=== PATIENT | female | born 1960 | race African-American/Black ===

== ENCOUNTER 2017-11-11 08:56 | Inpatient (IN) | payer MEDICARE, OTHER ==
[~2017-11-11] VITALS: Ht 165.1 cm; Wt 79.4 kg
[2017-11-11] VITALS (8 sets, daily range): BP systolic 145–166; BP diastolic 68–75
[~2017-11-11 08:56] MED LIST: ASPIRIN-LOW81 MG ORAL; ATARAX50 MG ORAL; ATENOLOL50 MG ORAL; ATIVAN1 MG ORAL; ATORVASTATIN CA20 MG ORAL; BACTRIM DS TAB1 EAC1 ORAL; CLONIDINE 0.2M0.2 MG PO; COLACE100 MG ORAL; CYCLOBENZAPRINE10 MG ORAL; EXFORGE 10-3201 EACH ORAL; FISH OIL CAP1000 MG ORAL; FUROSEMIDE40 MG ORAL; GEMFIBROZIL600 MG ORAL; IBUPROFEN600 MG ORAL; JANUVIA25 MG ORAL; LANTUS5 UNITS SUBQ; LYRICA25 MG ORAL; METFORMIN HCL1000 M1 ORAL; NOVOLOG100 UNIT/3 SUBQ; PROZAC10 MG ORAL; VICTOZA 2-0.6 MG/0.1 SUBQ
--- NOTE | 2017-11-11 09:21 | Emergency Room Report ---
History of Present Illness General Chief Complaint: Multiple Trauma/Fall Source: Patient, EMS Present Illness HPI 56-year-old female, history of chronic back pain with the morphine pump, presenting with neck pain. Patient states that she was trying to get out of bed , slipped and fell hit her head. Denies losing consciousness. States that now her head and her neck hurts. Denies being on blood thinners. Patient states that she was in an apartment with a caregiver Allergies: Coded Allergies: No Known Allergies (Unverified , 03/23/16) Patient History Past Medical History: see triage record Past Surgical History: none Pertinent Family History: none Reviewed Nursing Documentation: PMH: Agreed, PSxH: Agreed Nursing Documentation-PMH Past Medical History: No History, Except For Hx Hypertension: Yes Hx COPD: No - BACK SURGERY Hx Diabetes: Yes Hx Gastrointestinal Problems: Yes - constipation Hx Headaches: Yes Review of Systems All Other Systems: negative except mentioned in HPI Physical Exam Vital Signs Date Time Temp Pulse Resp B/P (MAP) Pulse Ox O2 Delivery O2 Flow Rate FiO2 11/11/17 08:10 98.4 88 20 160/83 95 Room Air Sp02 EP Interpretation: reviewed, normal General Appearance: alert, GCS 15, non-toxic, mild distress Head: normocephalic, atraumatic Eyes: bilateral eye normal inspection, bilateral eye PERRL, bilateral eye EOMI ENT: normal ENT inspection, normal pharynx, normal voice, moist mucus membranes Neck: other - mild paraspinal cervical tenderness no midline tendenress limited rom 2/2 pain Respiratory: normal inspection, lungs clear, normal breath sounds, no respiratory distress, no retraction, no wheezing, speaking full sentences, chest symmetrical Cardiovascular #1: normal inspection, regular rate, rhythm, no edema, normal capillary refill Cardiovascular #2: 2+ radial (R), 2+ radial (L) Gastrointestinal: normal inspection, non tender, soft, non-distended, no guarding Musculoskeletal: normal inspection, back normal, normal range of motion, non- tender Neurologic: normal inspection, alert, oriented x3, responsive, motor strength/ tone normal, sensory intact, normal gait, speech normal Psychiatric: normal inspection, judgement/insight normal, memory normal Skin: normal inspection, normal color, no rash, warm/dry, well hydrated, normal turgor Medical Decision Making Diagnostic Impression: Primary Impression: Closed head injury Additional Impressions: Marijuana abuse Opiate abuse, continuous Intractable pain ER Course 56-year-old female with mechanical fall DDX: Rule out intracranial hemorrhage, C-spine fracture no neurological signs or symptoms Plan: CT head and C-spine ER course: Patient has remained stable during ED stay. Awake and alert, on a monitor has been D/W Radiology Dr Roberson- states he sees small punctate lesion cannot r/o hemorrhage although likely calcification. area is not likely to be caused by trauma. Will perform interval CT imaging in 4 hours PAtient has remained awake and alert CT C spine negative will admit for intractable pain Disposition: Pt admitted to med surg D/W hospitalist Dr Cornejo Please note that this Emergency Department Report was dictated using [employer] racker technology software, occasionally this can lead to erroneous entry secondary to interpretation by the dictation equipment EKG Diagnostic Results EP Interpretation: Yes Rate: normal Rhythm: NSR ST Segments: No acute changes ASA given to patient: No Laboratory Tests Test 11/11/17 11:20 White Blood Count 6.7 K/UL (4.8-10.8) Red Blood Count 3.92 M/UL (4.20-5.40) L Hemoglobin 11.1 G/DL (12.0-16.0) L Hematocrit 35.7 % (37.0-47.0) L Mean Corpuscular Volume 91 FL (80-99) Mean Corpuscular Hemoglobin 28.3 PG (27.0-31.0) Mean Corpuscular Hemoglobin Concent 31.1 G/DL (32.0-36.0) L Red Cell Distribution Width 13.3 % (11.6-14.8) Platelet Count 346 K/UL (150-450) Mean Platelet Volume 6.5 FL (6.5-10.1) Neutrophils (%) (Auto) 57.6 % (45.0-75.0) Lymphocytes (%) (Auto) 32.1 % (20.0-45.0) Monocytes (%) (Auto) 5.3 % (1.0-10.0) Eosinophils (%) (Auto) 3.4 % (0.0-3.0) H Basophils (%) (Auto) 1.6 % (0.0-2.0) Urine Color Pale yellow Urine Appearance Clear Urine pH 8 (4.5-8.0) Urine Specific [place] 1.015 (1.005-1.035) Urine Protein Negative (NEGATIVE) Urine Glucose (UA) 4+ (NEGATIVE) H Urine Ketones Negative (NEGATIVE) Urine Occult Blood Negative (NEGATIVE) Urine Nitrite Negative (NEGATIVE) Urine Bilirubin Negative (NEGATIVE) Urine Urobilinogen Normal MG/DL (0.0-1.0) Urine Leukocyte Esterase Negative (NEGATIVE) Sodium Level 142 MMOL/L (136-145) Potassium Level 3.7 MMOL/L (3.5-5.1) Chloride Level 105 MMOL/L (98-107) Carbon Dioxide Level 30 MMOL/L (21-32) Anion Gap 7 mmol/L (5-15) Blood Urea Nitrogen 11 mg/dL (7-18) Creatinine 0.6 MG/DL (0.55-1.30) Estimate Glomerular Filtration Rate > 60 mL/min (>60) Glucose Level 235 MG/DL (74-106) H Calcium Level 8.4 MG/DL (8.5-10.1) L Total Bilirubin 0.2 MG/DL (0.2-1.0) Aspartate Amino Transferase (AST) 29 U/L (15-37) Alanine Aminotransferase (ALT) 25 U/L (12-78) Alkaline Phosphatase 103 U/L (46-116) Troponin I 0.000 ng/mL (0.000-0.056) Total Protein 7.3 G/DL (6.4-8.2) Albumin 3.5 G/DL (3.4-5.0) Globulin 3.8 g/dL Albumin/Globulin Ratio 0.9 (1.0-2.7) L Salicylates Level 6.9 ug/mL (2.8-20) Urine Opiates Screen Positive (NEGATIVE) H Acetaminophen Level < 2 MCG/ML (10-30) L Urine Barbiturates Screen Negative (NEGATIVE) Phencyclidine (PCP) Screen Negative (NEGATIVE) Urine Amphetamines Screen Negative (NEGATIVE) Urine Benzodiazepines Screen Negative (NEGATIVE) Urine Cocaine Screen Negative (NEGATIVE) Urine Marijuana (THC) Screen Positive (NEGATIVE) H Serum Alcohol < 3 mg/dL CT/MRI/US Diagnostic Results CT/MRI/US Diagnostic Results #1: Imaging Test Ordered: CT Head Impression Findings: There is a small focus of increased attenuation in the anterior parasagittal right frontal lobe. This measures approximately 4 mm in diameter. No other finding to suggest acute intracranial hemorrhage or edema. No mass effect or midline shift. Normal alarcon-white differentiation. Intact calvarium. Visualized orbits are unremarkable. There is evidence of empty sella. Intact calvarium. Normal- sized ventricles and extra axial CSF spaces. There is some periventricular deep white matter low-attenuation consistent with chronic ischemic change. There is suggestion of an old lacunar infarct in the anterior left internal capsule. There is slight thickening of the high right posterior parietal scalp. Impression: Tiny focus of high attenuation in the anterior medial right frontal lobe. Suspect this represents a small parenchymal calcification or calcified vessel. However, small focus of hemorrhage is not completely excluded. MRI versus short interval follow-up imaging may be useful to clarify No other evidence of acute intracranial bleed or mass effect. Chronic findings as described Critical value findings phoned to Dr. Martin in the emergency room at the time of interpretation CT/MRI/US Diagnostic Results #2: Imaging Test Ordered: CT C spine Impression Comparison: none Findings: Motion artifact degrades the images of C2 through C4. Subtle pathology could be missed. Bony alignment is normal. No definite acute fractures. No dislocations. No prevertebral soft tissue swelling. Vertebral body heights are preserved. There is anterior surgical fusion of C5, C6, and C7. There appears to be successful ankylosis of the C5-6 disc. The C6-7 disc does not appear to be ankylosed. There is degenerative narrowing of the anterior atlantoaxial joint. There are degenerative proliferative changes of the anterior arch of C1. At C2-3, no significant disc bulge or protrusion or spinal stenosis. The disc space is preserved. There is mild narrowing of the bilateral neural foramina. There is considerable facet arthrosis bilaterally, particularly on the right. At C3-4, the disc space is preserved. No significant disc bulge or protrusion or spinal stenosis. There is mild neural foraminal stenosis bilaterally. There is marked erosion of the bilateral facets, particularly on the left, as well as erosive changes of the spinous process. A large subchondral cyst is seen within the lamina on the right. There is also associated extensive degenerative proliferative change. At C4-5, the disc space is preserved. No significant disc bulge or protrusion, spinal stenosis, or neural foraminal stenosis. There is ankylosis of the right facet and mild arthrosis of the left facet. At C5-6, posterior osteophytes result in narrowing of the spinal canal just to the left of midline and likely impingement on the anterior aspect of the cord. The spinal canal is narrowed to about 8 mm minimum AP dimension. There is mild right and moderate left neural foraminal stenosis at this level. There is bilateral facet arthrosis, more severe on the left. At C6-7, there is likewise narrowing of the spinal canal by a continuation of the above-mentioned osteophytes. There is mild right and moderate to severe left neural foraminal stenosis. At C7-T1, there is mild degenerative disc narrowing. Posterior osteophytes result in borderline compromise of the spinal canal. There is mild narrowing of the left neural foramen. The included extraspinal soft tissues are unremarkable. Impression: Somewhat limited exam due to motion artifact. No definite acute bony trauma Degenerative changes, as detailed on a level by level basis above Erosive changes of the C3-4 facets. This is most likely degenerative in nature, but the possibility of infection cannot be completely ruled out. MRI with contrast should be considered if there is high clinical suspicion Last Vital Signs Date Time Temp Pulse Resp B/P (MAP) Pulse Ox O2 Delivery O2 Flow Rate FiO2 11/11/17 08:10 98.4 88 20 160/83 95 Room Air Disposition: ADMITTED INPATIENT Condition: Serious Referrals: NOT CHOSEN IPA/,REFERRING (PCP) Mishel Martin M.D. Nov 11, 2017 09:21
--- NOTE | 2017-11-11 10:03 | Diagnostic Imaging Report ---
Indications: Pain Technique: Spiral acquisitions obtained through the brain. Angled axial and coronal 5 x 5 mm slices were reconstructed. Total dose length product 1425 mGycm. CTDI vol(s) 70 mGy. Dose reduction achieved using automated exposure control Comparison: None. Findings: There is a small focus of increased attenuation in the anterior parasagittal right frontal lobe. This measures approximately 4 mm in diameter. No other finding to suggest acute intracranial hemorrhage or edema. No mass effect or midline shift. Normal alarcon-white differentiation. Intact calvarium. Visualized orbits are unremarkable. There is evidence of empty sella. Intact calvarium. Normal-sized ventricles and extra axial CSF spaces. There is some periventricular deep white matter low-attenuation consistent with chronic ischemic change. There is suggestion of an old lacunar infarct in the anterior left internal capsule. There is slight thickening of the high right posterior parietal scalp. Impression: Tiny focus of high attenuation in the anterior medial right frontal lobe. Suspect this represents a small parenchymal calcification or calcified vessel. However, small focus of hemorrhage is not completely excluded. MRI versus short interval follow-up imaging may be useful to clarify No other evidence of acute intracranial bleed or mass effect. Chronic findings as described Critical value findings phoned to Dr. Martin in the emergency room at the time of interpretation The CT scanner at [facility] is accredited by the [employer] and the scans are performed using protocols designed to limit radiation exposure to as low as reasonably achievable to attain images of sufficient resolution adequate for diagnostic evaluation.
--- NOTE | 2017-11-11 10:19 | Diagnostic Imaging Report ---
Indication: Reason For Exam: PAIN Technique: Spiral acquisitions obtained through the cervical spine. No IV contrast utilized. Multiplanar reconstructions were generated. Total dose length product 409 mGycm. CTDIvol(s) 21 mGy. Dose reduction achieved using automated exposure control. Comparison: none Findings: Motion artifact degrades the images of C2 through C4. Subtle pathology could be missed. Bony alignment is normal. No definite acute fractures. No dislocations. No prevertebral soft tissue swelling. Vertebral body heights are preserved. There is anterior surgical fusion of C5, C6, and C7. There appears to be successful ankylosis of the C5-6 disc. The C6-7 disc does not appear to be ankylosed. There is degenerative narrowing of the anterior atlantoaxial joint. There are degenerative proliferative changes of the anterior arch of C1. At C2-3, no significant disc bulge or protrusion or spinal stenosis. The disc space is preserved. There is mild narrowing of the bilateral neural foramina. There is considerable facet arthrosis bilaterally, particularly on the right. At C3-4, the disc space is preserved. No significant disc bulge or protrusion or spinal stenosis. There is mild neural foraminal stenosis bilaterally. There is marked erosion of the bilateral facets, particularly on the left, as well as erosive changes of the spinous process. A large subchondral cyst is seen within the lamina on the right. There is also associated extensive degenerative proliferative change. At C4-5, the disc space is preserved. No significant disc bulge or protrusion, spinal stenosis, or neural foraminal stenosis. There is ankylosis of the right facet and mild arthrosis of the left facet. At C5-6, posterior osteophytes result in narrowing of the spinal canal just to the left of midline and likely impingement on the anterior aspect of the cord. The spinal canal is narrowed to about 8 mm minimum AP dimension. There is mild right and moderate left neural foraminal stenosis at this level. There is bilateral facet arthrosis, more severe on the left. At C6-7, there is likewise narrowing of the spinal canal by a continuation of the above-mentioned osteophytes. There is mild right and moderate to severe left neural foraminal stenosis. At C7-T1, there is mild degenerative disc narrowing. Posterior osteophytes result in borderline compromise of the spinal canal. There is mild narrowing of the left neural foramen. The included extraspinal soft tissues are unremarkable. Impression: Somewhat limited exam due to motion artifact. No definite acute bony trauma Degenerative changes, as detailed on a level by level basis above Erosive changes of the C3-4 facets. This is most likely degenerative in nature, but the possibility of infection cannot be completely ruled out. MRI with contrast should be considered if there is high clinical suspicion The CT scanner at [facility] is accredited by the [employer] and the scans are performed using protocols designed to limit radiation exposure to as low as reasonably achievable to attain images of sufficient resolution adequate for diagnostic evaluation.
--- NOTE | 2017-11-11 11:18 | Diagnostic Imaging Report ---
Indication: Chest pain Technique: One view of the chest Comparison: none Findings: Suboptimal inspiration. Lungs and pleural spaces are clear. The heart size is upper limits of normal. The aorta is tortuous. Surgical fusion hardware is seen in the cervical spine Impression: No acute process
[2017-11-11 11:51] LABS: BASOPHILS % (AUTO) 1.6 % (0.0-2.0); EOSINOPHILS % (AUTO) 3.4 % (0.0-3.0); HEMATOCRIT 35.7 % (37.0-47.0); HEMOGLOBIN 11.1 G/DL (12.0-16.0); LYMPHOCYTES % (AUTO) 32.1 % (20.0-45.0); MEAN CORPUSCULAR VOLUME 91 FL (80-99); MONOCYTES % (AUTO) 5.3 % (1.0-10.0); NEUTROPHILS % (AUTO) 57.6 % (45.0-75.0); PLATELET COUNT 346 K/UL (150-450); RED BLOOD COUNT 3.92 M/UL (4.20-5.40); RED CELL DISTRIBUTION WIDTH 13.3 % (11.6-14.8); WHITE BLOOD COUNT 6.7 K/UL (4.8-10.8)
[2017-11-11 11:53] LABS: APPEARANCE,URINE CLEAR; BILIRUBIN, URINE NEGATIVE (NEGATIVE); COLOR,URINE PALE YELLOW; GLUCOSE, URINE (UA) 4+ (NEGATIVE); KETONES,URINE NEGATIVE (NEGATIVE); LEUKOCYTE ESTERASE ,URINE NEGATIVE (NEGATIVE); NITRITE,URINE NEGATIVE (NEGATIVE); PH,URINE 8 (4.5-8.0); PROTEIN,URINE NEGATIVE (NEGATIVE); UROBILINOGEN,URINE NORMAL MG/DL (0.0-1.0)
[2017-11-11 12:01] LABS: ANION GAP 7 mmol/L (5-15); BLOOD UREA NITROGEN 11 mg/dL (7-18); CALCIUM 8.4 MG/DL (8.5-10.1); CARBON DIOXIDE 30 MMOL/L (21-32); CHLORIDE 105 MMOL/L (98-107); CREATININE 0.6 MG/DL (0.55-1.30); POTASSIUM 3.7 MMOL/L (3.5-5.1); SODIUM 142 MMOL/L (136-145)
[2017-11-11 12:05] LABS: ALANINE AMINOTRANSFERASE 25 U/L (12-78); ALBUMIN 3.5 G/DL (3.4-5.0); ALBUMIN/GLOBULIN RATIO 0.9 (1.0-2.7); ALKALINE PHOSPHATASE 103 U/L (46-116); ASPARTATE AMINO TRANSFERASE 29 U/L (15-37); BILIRUBIN,TOTAL 0.2 MG/DL (0.2-1.0)
[2017-11-11] MEDS ORDERED: Morphine Sulfate 4mg/ml Inj IVP ONE ×2 (14:00→14:15)
[2017-11-12 00:06] VITALS: BP 169/79
[2017-11-12] MEDS ORDERED: Norco 5mg/325mg tab ORAL PRN (02:00)
[2017-11-12 04:11] VITALS: BP 157/77
[2017-11-12 08:00] VITALS: BP 187/86
[2017-11-12 08:51] LABS: EOSINOPHILS % (AUTO) 3.5 % (0.0-3.0); HEMATOCRIT 35.9 % (37.0-47.0); HEMOGLOBIN 11.2 G/DL (12.0-16.0); LYMPHOCYTES % (AUTO) 39.7 % (20.0-45.0); MEAN CORPUSCULAR VOLUME 91 FL (80-99); MONOCYTES % (AUTO) 5.2 % (1.0-10.0); NEUTROPHILS % (AUTO) 49.7 % (45.0-75.0); PLATELET COUNT 342 K/UL (150-450); RED BLOOD COUNT 3.94 M/UL (4.20-5.40); RED CELL DISTRIBUTION WIDTH 13.2 % (11.6-14.8)
--- NOTE | 2017-11-12 09:07 | Consultation ---
History of Present Illness General Date patient seen: Nov 12, 2017 Chief Complaint: Present Illness Allergies: Coded Allergies: No Known Allergies (Unverified , 03/23/16) Medication History Scheduled Amlodipine/Valsartan (Exforge 10-320 Mg Tablet), 1 TAB ORAL DAILY, (Reported) Aspirin (Aspirin EC), 81 MG ORAL DAILY, (Reported) Atenolol* (Tenormin*), 50 MG ORAL BID, (Reported) Atorvastatin Calcium* (Atorvastatin Calcium*), 20 MG ORAL BEDTIME, (Reported) Clonidine HCl (Clonidine HCl), 0.2 MG PO DAILY, (Reported) Docusate Sodium* (Colace*), 100 MG ORAL TWICE A DAY, (Reported) Fish Oil (Fish Oil 1,000 mg Capsule), 1,000 MG ORAL DAILY Fluoxetine Hcl* (Prozac*), 10 MG ORAL DAILY, (Reported) Furosemide* (Lasix*), 40 MG ORAL DAILY, (Reported) Gemfibrozil (Gemfibrozil*), 600 MG ORAL TWICE A DAY Hydroxyzine HCl (Hydroxyzine Pamoate), 100 MG ORAL BEDTIME, (Reported) Insulin Aspart* (Novolog*), 15 SUBQ TID, (Reported) Insulin Glargine (Lantus), 40 SUBQ BEDTIME, (Reported) Liraglutide (Victoza 2-Jef), 1.8 UNITS SUBQ DAILY, (Reported) Lorazepam* (Ativan*), 1 MG ORAL BID, (Reported) Metformin Hcl* (Metformin Hcl*), 1,000 MG ORAL BID, (Reported) Pregabalin (Lyrica), 25 MG ORAL BID, (Reported) Sitagliptin* (Januvia*), 25 MG ORAL DAILY, (Reported) Trimethoprim/Sulfamethoxazole 160/800* (Bactrim Ds Tablet*), 1 TAB ORAL TWICE A DAY Scheduled PRN Cyclobenzaprine Hcl* (Flexeril*), 10 MG ORAL TID PRN for Muscle Spasm Ibuprofen* (Motrin*), 600 MG ORAL Q8H PRN for For Pain Patient History Healthcare decision maker Resuscitation status Advanced Directive on File Physical Exam Last 24 Hour Vital Signs Date Time Temp Pulse Resp B/P (MAP) Pulse Ox O2 Delivery O2 Flow Rate FiO2 11/12/17 08:00 98.2 59 18 187/86 100 Nasal Cannula 11/12/17 04:11 97.7 56 20 157/77 99 Nasal Cannula 11/12/17 04:00 56 11/12/17 00:06 97.7 62 20 169/79 100 Room Air 11/12/17 00:00 60 11/11/17 21:50 98.4 54 15 163/69 100 Room Air 11/11/17 20:45 54 15 163/69 100 Room Air 11/11/17 20:00 98.4 58 16 163/75 98 Room Air 11/11/17 19:30 52 12 162/71 100 Room Air 11/11/17 18:00 58 16 163/75 98 Room Air 11/11/17 16:00 54 16 166/75 95 Room Air 11/11/17 14:00 64 16 145/68 95 Room Air 11/11/17 12:00 61 12 149/72 95 Room Air 11/11/17 10:00 65 14 150/74 95 Room Air Intake and Output 11/11/17 11/12/17 19:00 07:00 Intake Total 240 ml Balance 240 ml Intake Oral 240 ml # Voids 2 # Bowel Movements 1 Laboratory Tests Test 11/11/17 11:20 11/12/17 07:40 White Blood Count 6.7 K/UL (4.8-10.8) 6.0 K/UL (4.8-10.8) Red Blood Count 3.92 M/UL (4.20-5.40) L 3.94 M/UL (4.20-5.40) L Hemoglobin 11.1 G/DL (12.0-16.0) L 11.2 G/DL (12.0-16.0) L Hematocrit 35.7 % (37.0-47.0) L 35.9 % (37.0-47.0) L Mean Corpuscular Volume 91 FL (80-99) 91 FL (80-99) Mean Corpuscular Hemoglobin 28.3 PG (27.0-31.0) 28.5 PG (27.0-31.0) Mean Corpuscular Hemoglobin Concent 31.1 G/DL (32.0-36.0) L 31.3 G/DL (32.0-36.0) L Red Cell Distribution Width 13.3 % (11.6-14.8) 13.2 % (11.6-14.8) Platelet Count 346 K/UL (150-450) 342 K/UL (150-450) Mean Platelet Volume 6.5 FL (6.5-10.1) 6.2 FL (6.5-10.1) L Neutrophils (%) (Auto) 57.6 % (45.0-75.0) 49.7 % (45.0-75.0) Lymphocytes (%) (Auto) 32.1 % (20.0-45.0) 39.7 % (20.0-45.0) Monocytes (%) (Auto) 5.3 % (1.0-10.0) 5.2 % (1.0-10.0) Eosinophils (%) (Auto) 3.4 % (0.0-3.0) H 3.5 % (0.0-3.0) H Basophils (%) (Auto) 1.6 % (0.0-2.0) 2.0 % (0.0-2.0) Urine Color Pale yellow Urine Appearance Clear Urine pH 8 (4.5-8.0) Urine Specific [place] 1.015 (1.005-1.035) Urine Protein Negative (NEGATIVE) Urine Glucose (UA) 4+ (NEGATIVE) H Urine Ketones Negative (NEGATIVE) Urine Occult Blood Negative (NEGATIVE) Urine Nitrite Negative (NEGATIVE) Urine Bilirubin Negative (NEGATIVE) Urine Urobilinogen Normal MG/DL (0.0-1.0) Urine Leukocyte Esterase Negative (NEGATIVE) Sodium Level 142 MMOL/L (136-145) Pending Potassium Level 3.7 MMOL/L (3.5-5.1) Pending Chloride Level 105 MMOL/L (98-107) Pending Carbon Dioxide Level 30 MMOL/L (21-32) Pending Anion Gap 7 mmol/L (5-15) Blood Urea Nitrogen 11 mg/dL (7-18) Pending Creatinine 0.6 MG/DL (0.55-1.30) Pending Estimat Glomerular Filtration Rate > 60 mL/min (>60) Pending Glucose Level 235 MG/DL (74-106) H Pending Calcium Level 8.4 MG/DL (8.5-10.1) L Pending Total Bilirubin 0.2 MG/DL (0.2-1.0) Pending Aspartate Amino Transf (AST/SGOT) 29 U/L (15-37) Pending Alanine Aminotransferase (ALT/SGPT) 25 U/L (12-78) Pending Alkaline Phosphatase 103 U/L (46-116) Pending Troponin I 0.000 ng/mL (0.000-0.056) Total Protein 7.3 G/DL (6.4-8.2) Pending Albumin 3.5 G/DL (3.4-5.0) Pending Globulin 3.8 g/dL Pending Albumin/Globulin Ratio 0.9 (1.0-2.7) L Salicylates Level 6.9 ug/mL (2.8-20) Urine Opiates Screen Positive (NEGATIVE) H Acetaminophen Level < 2 MCG/ML (10-30) L Urine Barbiturates Screen Negative (NEGATIVE) Phencyclidine (PCP) Screen Negative (NEGATIVE) Urine Amphetamines Screen Negative (NEGATIVE) Urine Benzodiazepines Screen Negative (NEGATIVE) Urine Cocaine Screen Negative (NEGATIVE) Urine Marijuana (THC) Screen Positive (NEGATIVE) H Serum Alcohol < 3 mg/dL Height (Feet): 5 Height (Inches): 5.00 Weight (Pounds): 175 Medications Current Medications Medications (Trade) Dose Ordered Sig/Jesse Route PRN Reason Start Time Stop Time Status Last Admin Dose Admin Acetaminophen/ Hydrocodone Bitart (Gilbert 10/325) 1 ea Q4H PRN ORAL severe pain 11/12/17 09:00 11/19/17 23:59 Baclofen (Lioresal) 10 mg THREE TIMES A DAY PRN ORAL muscle spasm 11/12/17 09:00 12/12/17 08:59 Heparin Sodium (Porcine) (Heparin 5000 units/ml) 5,000 units Q12HR SUBQ 11/12/17 09:00 12/12/17 08:59 Hydralazine HCl (Apresoline) 25 mg Q6HR ORAL 11/12/17 09:00 12/12/17 08:59 UNV Lidocaine (Lidoderm 5% PATCH) 1 patch DAILY TDERMAL 11/12/17 09:00 12/12/17 08:59 Pregabalin (Lyrica) 50 mg THREE TIMES A DAY ORAL 11/12/17 09:00 12/12/17 08:59 Sodium Chloride 1,000 ml @ 100 mls/hr Q10H IV 11/11/17 23:00 12/11/17 22:59 11/12/17 02:21 Assessment/Plan Assessment/Plan (1) FBSS (2) Lumbar and Cervical DDD (3) Lumbar and Cervical spondylosis (4) Lumbar and Cervical radiculopathy (5) Cervical sprain seen dictated ROYAL BETANCOURT Nov 12, 2017 09:07
[2017-11-12 09:09] LABS: ALANINE AMINOTRANSFERASE 28 U/L (12-78); ALBUMIN 3.3 G/DL (3.4-5.0); ALBUMIN/GLOBULIN RATIO 0.8 (1.0-2.7); ALKALINE PHOSPHATASE 95 U/L (46-116); ANION GAP 8 mmol/L (5-15); ASPARTATE AMINO TRANSFERASE 22 U/L (15-37); BILIRUBIN,TOTAL 0.5 MG/DL (0.2-1.0); BLOOD UREA NITROGEN 9 mg/dL (7-18); CALCIUM 8.1 MG/DL (8.5-10.1); CARBON DIOXIDE 28 MMOL/L (21-32); CHLORIDE 104 MMOL/L (98-107); CREATININE 0.5 MG/DL (0.55-1.30); POTASSIUM 3.8 MMOL/L (3.5-5.1); SODIUM 140 MMOL/L (136-145)
[2017-11-12] MEDS: HydrALAZINE 25mg tab ORAL SCH ×3 (09:23→17:26)
[2017-11-12] MEDS: Lyrica 50mg cap ORAL SCH ×3 (09:23→17:26)
[2017-11-12] MEDS: Heparin 5000 units/ml inj SUBQ SCH ×2 (09:25→21:25)
[2017-11-12 12:06] VITALS: BP 143/70
[2017-11-12] MEDS: HYDROcodone/Acetamin 10/325 tab ORAL PRN ×3 (13:20→21:28)
--- NOTE | 2017-11-12 15:04 | History and Physical ---
History of Present Illness General Date patient seen: Nov 12, 2017 Reason for Hospitalization: Multiple Trauma/Fall Present Illness HPI 56-year-old female, history of chronic back pain with the morphine pump, presenting with neck pain. she slipped and fell hit her head on day of admission Denies losing consciousness. States that now her head and her neck hurts. She lives with a healthcare consultant at her own place. Allergies: Coded Allergies: No Known Allergies (Unverified , 03/23/16) Medication History Scheduled Amlodipine/Valsartan ([place] 10-320 Mg Tablet), 1 TAB ORAL DAILY, (Reported) Aspirin (Aspirin EC), 81 MG ORAL DAILY, (Reported) Atenolol* (Tenormin*), 50 MG ORAL BID, (Reported) Atorvastatin Calcium* (Atorvastatin Calcium*), 20 MG ORAL BEDTIME, (Reported) Clonidine HCl (Clonidine HCl), 0.2 MG PO DAILY, (Reported) Docusate Sodium* (Colace*), 100 MG ORAL TWICE A DAY, (Reported) Fish Oil (Fish Oil 1,000 mg Capsule), 1,000 MG ORAL DAILY Fluoxetine Hcl* (Prozac*), 10 MG ORAL DAILY, (Reported) Furosemide* (Lasix*), 40 MG ORAL DAILY, (Reported) Gemfibrozil (Gemfibrozil*), 600 MG ORAL TWICE A DAY Hydroxyzine HCl (Hydroxyzine Pamoate), 100 MG ORAL BEDTIME, (Reported) Insulin Aspart* (Novolog*), 15 SUBQ TID, (Reported) Insulin Glargine (Lantus), 40 SUBQ BEDTIME, (Reported) Liraglutide (Victoza 2-Jef), 1.8 UNITS SUBQ DAILY, (Reported) Lorazepam* (Ativan*), 1 MG ORAL BID, (Reported) Metformin Hcl* (Metformin Hcl*), 1,000 MG ORAL BID, (Reported) Pregabalin (Lyrica), 25 MG ORAL BID, (Reported) Sitagliptin* (Januvia*), 25 MG ORAL DAILY, (Reported) Trimethoprim/Sulfamethoxazole 160/800* (Bactrim Ds Tablet*), 1 TAB ORAL TWICE A DAY Scheduled PRN Cyclobenzaprine Hcl* (Flexeril*), 10 MG ORAL TID PRN for Muscle Spasm Ibuprofen* (Motrin*), 600 MG ORAL Q8H PRN for For Pain Patient History Healthcare decision maker Resuscitation status Advanced Directive on File Past Medical/Surgical History Past Medical/Surgical History: (1) Diabetes mellitus (2) HTN (hypertension) Review of Systems Constitutional: Reports: no symptoms Eye: Reports: no symptoms ENT: Reports: no symptoms Respiratory: Reports: no symptoms Musculoskeletal: Reports: no symptoms Physical Exam General Appearance: WD/WN Lines, tubes and drains: peripheral HEENT: normocephalic, atraumatic, anicteric Neck: non-tender, supple Respiratory/Chest: chest wall non-tender, normal breath sounds Breasts: no masses Cardiovascular/Chest: normal peripheral pulses, normal rate Abdomen: normal bowel sounds, non tender Genitourinary/Rectal: normal genital exam Extremities: normal range of motion Last 24 Hour Vital Signs Date Time Temp Pulse Resp B/P (MAP) Pulse Ox O2 Delivery O2 Flow Rate FiO2 11/12/17 14:19 99.1 11/12/17 12:06 99.1 59 18 143/70 100 Nasal Cannula 11/12/17 12:00 59 11/12/17 09:23 187/86 11/12/17 08:00 78 11/12/17 08:00 98.2 59 18 187/86 100 Nasal Cannula 11/12/17 04:11 97.7 56 20 157/77 99 Nasal Cannula 11/12/17 04:00 56 11/12/17 00:06 97.7 62 20 169/79 100 Room Air 11/12/17 00:00 60 11/11/17 21:50 98.4 54 15 163/69 100 Room Air 11/11/17 20:45 54 15 163/69 100 Room Air 11/11/17 20:00 98.4 58 16 163/75 98 Room Air 11/11/17 19:30 52 12 162/71 100 Room Air 11/11/17 18:00 58 16 163/75 98 Room Air 11/11/17 16:00 54 16 166/75 95 Room Air Intake and Output 11/11/17 11/12/17 19:00 07:00 Intake Total 240 ml Balance 240 ml Intake Oral 240 ml # Voids 2 # Bowel Movements 1 Laboratory Tests Test 11/12/17 07:40 White Blood Count 6.0 K/UL (4.8-10.8) Red Blood Count 3.94 M/UL (4.20-5.40) L Hemoglobin 11.2 G/DL (12.0-16.0) L Hematocrit 35.9 % (37.0-47.0) L Mean Corpuscular Volume 91 FL (80-99) Mean Corpuscular Hemoglobin 28.5 PG (27.0-31.0) Mean Corpuscular Hemoglobin Concent 31.3 G/DL (32.0-36.0) L Red Cell Distribution Width 13.2 % (11.6-14.8) Platelet Count 342 K/UL (150-450) Mean Platelet Volume 6.2 FL (6.5-10.1) L Neutrophils (%) (Auto) 49.7 % (45.0-75.0) Lymphocytes (%) (Auto) 39.7 % (20.0-45.0) Monocytes (%) (Auto) 5.2 % (1.0-10.0) Eosinophils (%) (Auto) 3.5 % (0.0-3.0) H Basophils (%) (Auto) 2.0 % (0.0-2.0) Sodium Level 140 MMOL/L (136-145) Potassium Level 3.8 MMOL/L (3.5-5.1) Chloride Level 104 MMOL/L (98-107) Carbon Dioxide Level 28 MMOL/L (21-32) Anion Gap 8 mmol/L (5-15) Blood Urea Nitrogen 9 mg/dL (7-18) Creatinine 0.5 MG/DL (0.55-1.30) L Estimat Glomerular Filtration Rate > 60 mL/min (>60) Glucose Level 152 MG/DL (74-106) H Calcium Level 8.1 MG/DL (8.5-10.1) L Total Bilirubin 0.5 MG/DL (0.2-1.0) Aspartate Amino Transf (AST/SGOT) 22 U/L (15-37) Alanine Aminotransferase (ALT/SGPT) 28 U/L (12-78) Alkaline Phosphatase 95 U/L (46-116) Total Protein 7.2 G/DL (6.4-8.2) Albumin 3.3 G/DL (3.4-5.0) L Globulin 3.9 g/dL Albumin/Globulin Ratio 0.8 (1.0-2.7) L Height (Feet): 5 Height (Inches): 5.00 Weight (Pounds): 175 Medications Current Medications Medications (Trade) Dose Ordered Sig/Jesse Route PRN Reason Start Time Stop Time Status Last Admin Dose Admin Acetaminophen/ Hydrocodone Bitart ([place] 10/325) 1 ea Q4H PRN ORAL severe pain 11/12/17 09:00 11/19/17 23:59 11/12/17 13:20 Baclofen (Lioresal) 10 mg THREE TIMES A DAY PRN ORAL muscle spasm 11/12/17 09:00 12/12/17 08:59 Heparin Sodium (Porcine) (Heparin 5000 units/ml) 5,000 units Q12HR SUBQ 11/12/17 09:00 12/12/17 08:59 11/12/17 09:25 Hydralazine HCl (Apresoline) 25 mg Q6HR ORAL 11/12/17 09:00 12/12/17 08:59 11/12/17 09:23 Lidocaine (Lidoderm 5% PATCH) 1 patch DAILY TDERMAL 11/12/17 09:00 12/12/17 08:59 11/12/17 09:22 Pregabalin (Lyrica) 50 mg THREE TIMES A DAY ORAL 11/12/17 09:00 12/12/17 08:59 11/12/17 13:19 Sodium Chloride 1,000 ml @ 100 mls/hr Q10H IV 11/11/17 23:00 12/11/17 22:59 11/12/17 11:58 Assessment/Plan Problem List: (1) Closed head injury ICD Codes: S09.90XA - Unspecified injury of head, initial encounter SNOMED: 915076233457, 221126455 (2) Multiple injuries due to trauma ICD Codes: T07 - Unspecified multiple injuries SNOMED: 662154030 (3) Neck pain ICD Codes: M54.2 - Cervicalgia SNOMED: 22033947, 050455039 (4) Diabetes mellitus ICD Codes: E11.9 - Type 2 diabetes mellitus without complications SNOMED: 95207311 (5) Failed back surgical syndrome ICD Codes: M96.1 - Postlaminectomy syndrome, not elsewhere classified SNOMED: 898226473 Assessment/Plan pain management neuro evaluation pt/ot sliding scale diabetic diet ZARRABI,MIRALI Nov 12, 2017 15:04
--- NOTE | 2017-11-12 15:16 | Diagnostic Imaging Report ---
Indication: Trauma. Follow-up exam. Technique: Continuous helical CT scanning of the head was performed utilizing automated exposure control without intravenous contrast material. Axial and coronal reconstructions were obtained. Comparison: 11/11/2017, 9:31 CT dose: Total DLP 1386.64 mGycm; CTDI vol 70.38 mGy Findings: Punctate density in the medial right frontal lobe adjacent to the falx is similar in appearance compared to the prior exam. There is no acute intracranial hemorrhage, mass effect or cortical edema. The ventricles, cisterns and sulci are normal for age. Periventricular hypoattenuation is seen, a nonspecific finding most commonly reflective of sequela of chronic microvascular ischemia. 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 The posterior fossa and fourth ventricle are unremarkable. There is probable empty sella. Visualized mastoid air cells and paranasal sinuses are unremarkable. No focal lesions of the bony calvarium seen. There is unchanged thickening of the high right parietal scalp. Impression: Previous described punctate density in the right medial frontal lobe stable in size and appearance compared to the prior exam. This may represent an area of calcification. No evidence of acute intracranial hemorrhage, mass effect or cortical edema. Unchanged chronic findings as detailed above. The CT scanner at [facility] is accredited by the [employer] and the scans are performed using protocols designed to limit radiation exposure to as low as reasonably achievable to attain images of sufficient resolution adequate for diagnostic evaluation.
[2017-11-12 16:00] VITALS: BP 172/86
--- NOTE | 2017-11-12 16:00 | Consultation ---
DATE OF CONSULTATION: 11/12/2017 PAIN MANAGEMENT CONSULTATION CONSULTING PHYSICIAN: Jody Duncan M.D. ATTENDING/REFERRING PHYSICIAN: Ruddy Cornejo M.D. PHYSICIAN CUSTOMER SPECIALIST: Hal Perkins CHIEF COMPLAINT: Neck and low back pain. HISTORY OF PRESENT ILLNESS: The patient is a 56-year-old female, who is being seen for comprehensive pain management consultation here in [facility]. The patient is a known patient from Dr. Duncan's office due to low back pain and neck pain for many years. She describes the pain as a constant, chronic pain, rating it a 10/10. At this time, she has had a sharp shooting pain into her right upper extremity and left lower extremity, increased with movement, reporting that she had a fall, was admitted into the emergency room where a CT scan of the cervical spine was done showing degenerative changes and surgical fusions of the cervical spine. The patient has an intrathecal morphine pain pump, which is refilled per Dr. Duncan. Last filled on 10/30/2017. At this time, the patient is on [place] 5/325 mg one tablet every 8 hours with no pain relief. We were consulted so that the patient would have adequate pain control while here in the hospital. REVIEW OF SYSTEMS: Denies rash, fever, chills, sweating, dizziness, drowsiness, or change in her weight. No shortness of breath, chest pain, palpitations, or cough. No nausea, vomiting, diarrhea, or blood in the stool or urine. No bowel or bladder incontinence. No dysuria. She is complaining of neck pain and low back pain. PHYSICAL EXAMINATION: GENERAL: Alert, awake, and oriented. VITAL SIGNS: Blood pressure 187/86, heart rate is 59, oxygen saturation 100%, respiratory rate 18, and temperature is 98.2 degrees Fahrenheit. LUNGS: Decreased breath sounds bilaterally. HEART: Regular. ABDOMEN: Obese. EXTREMITIES: No cyanosis, no clubbing, and no edema. NEUROLOGIC: Upper extremity motor is 3/5 in all muscles bilaterally. Lower extremity, 2/5 on the right lower extremity. ASSESSMENT AND PLAN: This is a 56-year-old female, who has failed back surgery syndrome. Lumbar and cervical degenerative disk disease, lumbar and cervical spondylosis, lumbar and cervical radiculopathy, and cervical sprain. The patient will be continued on [place] increased to 10 mg tablet every 4 hours as needed for severe pain. We will start the patient on baclofen 10 mg tablet every 8 hours as needed for muscle spasm, Lyrica 50 mg tablet 3 times a day, Lidoderm patch to be applied to the neck and shoulder area on the right side 12 hours on and 12 hours off. Parameters will be set to hold opiates for oversedation or systolic pressure below 90 or diastolic blood pressure below 60. The patient was discussed with Dr. Duncan and Dr. Duncan concurred. We will follow the patient. Thank you very much for the courtesy of this consultation. Jody Duncan M.D. MEDINA Perkins DR: NIKHIL JOB#: [id number] CC:
--- NOTE | 2017-11-12 17:09 | Cardiology Report ---
APPROVED REPORT EKG Measurement Heart [id number] Normal sinus rhythm Nonspecific T wave abnormality Abnormal ECG
--- NOTE | 2017-11-12 19:58 | Consultation ---
Consult Note Consult Note JOB ID [id number] Ruddy Cornejo Nov 12, 2017 19:58
[2017-11-12 20:00] VITALS: BP 159/76
[2017-11-13 00:09] VITALS: BP 177/85
[2017-11-13] MEDS: HydrALAZINE 25mg tab ORAL SCH ×4 (01:20→19:04)
[2017-11-13] MEDS: HYDROcodone/Acetamin 10/325 tab ORAL PRN ×5 (01:22→20:33)
--- NOTE | 2017-11-13 03:00 | Consultation ---
DATE OF CONSULTATION: 11/12/2017 NEUROLOGICAL CONSULTATION CONSULTING PHYSICIAN: Placido Kwok M.D. ATTENDING/REQUESTING PHYSICIAN: Ruddy Cornejo M.D. HISTORY OF PRESENT ILLNESS: This is a 56-year-old female seen in neurological consultation to evaluate the acute onset of neck pain and weakness. According to the patient, she was doing fairly well as of yesterday, but then she was trying to use a walker, she somehow slipped, fell, hitting her back and neck against the ground without loss of consciousness, but developing acute right-sided neck pain. She was brought to emergency room with vital signs stable. Blood pressure 160/86, temperature 98.4 degrees. She has Catrina Coma Scale of 15. She was complaining of headache and neck pain. Initial laboratory studies included mild anemia, hemoglobin 11.1 and hematocrit 35.7. Chemistry panel with elevated blood sugar of 235 and calcium 8.4, otherwise normal study. Toxicology panel positive for opiates and marijuana. Urinalysis with 4+ glucose. Imaging studies included a chest x-ray which revealed no acute process. CT of the brain without contrast revealed tiny focus of high attenuation in anteromedial right frontal lobe, which could represent small calcification or calcified vessel, although not excluded a small focus of hemorrhage. There is evidence of empty sella, deep white matter disease, and old lacunar infarct in anterior left internal capsule. CT scan of the cervical spine revealed degenerative changes multilevel, erosive changes in C3-C4 facet, most likely degenerative, but unable to rule out infection. MRI was recommended. There was anterior cervical fusion of C5, C6, and C7, with ankylosis of C5-C6. CT scan of the brain was followed up, there were no further changes noted and felt that previous punctate density with x-ray evidence of calcification, without evidence of hemorrhage. Since admission until present, there were no any acute changes. PAST MEDICAL HISTORY: The patient has chronic pain disorder. She has morphine pump in place. She has history of cervical laminectomy, chronic low back pain, diabetes, obesity, hypertension, status post lumbar spine surgeries due to underlying severe spinal stenosis. MEDICATIONS: Treatment prior to admission included aspirin, amlodipine, atenolol, atorvastatin, clonidine, Flexeril, Prozac, furosemide, gemfibrozil, hydroxyzine, ibuprofen, insulin, Victoza, Ativan 1 mg b.i.d., metformin, Lyrica 25 mg b.i.d., Januvia, and Bactrim. ALLERGIES: None reported. SOCIAL HISTORY: She lives alone, but has a [id number] caregiver. Denies alcohol or drug abuse except current smoking marijuana. REVIEW OF SYMPTOMS: Severe pain in right occipital region, right neck region, old pain and discomfort in the right upper and right lower extremity which were "problems" from the lumbar spine surgery. Depressed mood. No visual or hearing abnormalities. No chest pain or palpitations. Denies respiratory problems. Denies abdominal pain or discomfort. No urine or bowel incontinence. PHYSICAL EXAMINATION: GENERAL: Well-developed, moderately obese female, sitting at the bedside. VITAL SIGNS: Stable. Blood pressure 128/80 and respirations 14. HEENT: Head normocephalic. There is no evidence of trauma. There is palpable tenderness in the right occipital area. No otorrhea. No rhinorrhea. MUSCULOSKELETAL: There is very acute tenderness on slight touch to right side of the neck, right shoulder. There is tenderness on palpation in the mid lumbar area. Straight leg raising test negative. There is tenderness on palpation of right arm. MENTAL STATUS: She is alert and oriented x3 with no evidence of aphasia or apraxia. Cognitive function normal. Emotionally labile, anxious, and tense. CRANIAL NERVE II: Pupils both responding to light and accommodation. Extraocular movements intact. No nystagmus. CRANIAL NERVE V: Normal corneal responses. CRANIAL NERVE VII: No facial asymmetry. CRANIAL NERVE VIII: Normal hearing. CRANIAL NERVES IX THROUGH XII: Within normal limits. MOTOR EXAMINATION: Revealed limited range of motion of right shoulder with weakness 4/5 in right upper and right lower extremities. Normal muscle tone. Deep tendon reflexes depressed bilaterally. Plantar responses flexor. SENSORY EXAMINATION: Decreased response to pin stimulation in right arm and right leg. No muscle atrophy is noted. GAIT: The patient was able to walk limping heavily to the right side, required assistance. IMPRESSION: 1. Status post mechanical fall with blunt head trauma without loss of consciousness. 2. Posttraumatic cervical musculoligamentous sprain, rule out cervical radiculopathy. 3. Status post lumbar and cervical spine surgeries, with chronic cervical and lumbar radiculopathy. 4. Chronic pain syndrome, opiate dependent. 5. Morphine pump implant. 6. Hypertension. 7. Insulin-dependent diabetes type 2. RECOMMENDATION: The patient unable to have MRI of the spine due to presence of morphine pump. CT of the cervical spine revealed no fracture, no dislocation. It seems pain now related mainly to blunt head trauma and cervical musculoligamentous sprain. We will continue with current treatment, reinstate Flexeril 10 mg b.i.d., increase Lyrica up 50 mg b.i.d., have neck collar, lidocaine applications to the injured area. Pain management will be involved. Thank you for allowing me to see this interesting patient in neurological consultation. Placido Kwok M.D. DR: Gerri JOB#: [id number] CC:
--- NOTE | 2017-11-13 04:45 | Consultation ---
DATE OF CONSULTATION: 11/12/2017 NOTE: POOR AUDIO HEMATOLOGY/ONCOLOGY CONSULTATION REQUESTING PHYSICIAN: Manjeet Delgadillo M.D. REASON FOR CONSULTATION: Evaluation of anemia. IDENTIFICATION DATA: Dear Dr. Delgadillo, The patient is a pleasant 56-year-old female, who I received a call last night that the patient has a past medical history which is significant for back pain, she slipped and fell. Apparently, had a CAT scan performed, which showed a small lesion, cannot rule out hemorrhage but likely calcification. Repeat CAT scan revealed the same finding. Hematology Service consulted for anemia and we will continue to follow if anemia worsens. PAST MEDICAL HISTORY: As noted above. MEDICATIONS: Amlodipine, aspirin, Tylenol, Lipitor, clonidine, , lorazepam, . ALLERGIES: No known drug allergies. REVIEW OF SYSTEMS: CONSTITUTIONAL: No fever, chills, or night sweats. SKIN: No rashes, bumps, or itching. HEENT: No headache, hearing, or vision changes. BREASTS: No lumps, pain, or discharge. PULMONARY: No cough, sputum, or shortness of breath. GASTROINTESTINAL: No nausea, vomiting, or diarrhea. GENITOURINARY: No dysuria, frequency, or urgency. MUSCULOSKELETAL: No joint swelling, muscle pain, or trauma. PHYSICAL EXAMINATION: VITAL SIGNS: Reviewed. GENERAL: No distress. PULMONARY: Decreased breath sounds. CARDIOVASCULAR: Regular rate. No S3 or S4. ABDOMEN: Soft, nontender, and nondistended. EXTREMITIES: A 1+ edema. LABORATORY DATA: WBC of 6.8, hemoglobin 11.8, hematocrit 36, and platelet count of 342,000. ASSESSMENT AND RECOMMENDATIONS: 1. Anemia secondary to chronic disease. Continue to closely monitor. It is mild at this time. 2. Intractable pain. The patient has been on pain management in the past Dr. Duncan for many years. She had a recent intrathecal morphine pain pump refilled by Dr. Duncan. Currently on [place] tablet every eight hours by Jerrell. Continue pain management at this time including baclofen, Lyrica, Lidoderm patch. Monitor blood pressure. 3. Trauma, fall. Currently resolved. Continue to monitor. Continue PT/OT. 4. Insulin-dependent diabetes mellitus. Continue insulin sliding scale. Ruddy Cornejo M.D. DR: Jose JOB#: [id number] CC:
[2017-11-13 04:57] VITALS: BP 170/90
[2017-11-13 08:46] VITALS: BP 157/90
--- NOTE | 2017-11-13 08:50 | General Progress Note ---
Assessment/Plan Assessment/Plan (1) FBSS (2) Lumbar and Cervical DDD (3) Lumbar and Cervical spondylosis (4) Lumbar and Cervical radiculopathy (5) Cervical sprain Pt to be continued on [place], Lyrica to be increased to 75mg TID and Baclofen. D/w Dr. Duncan and he concurred. Subjective Date patient seen: Nov 13, 2017 Time patient seen: 07:15 - am Allergies: Coded Allergies: No Known Allergies (Unverified , 03/23/16) Subjective REVIEW OF SYSTEMS: Denies rash, fever, chills, sweating, dizziness, drowsiness, or change in her weight. No shortness of breath, chest pain, palpitations, or cough. No nausea, vomiting, diarrhea, or blood in the stool or urine. No bowel or bladder incontinence. No dysuria. She is complaining of neck pain and low back pain. SUBJECTIVE: Pain has been severe and is doing PT. She continues to receive the Morphine through her pump and [place]. D/w her about increasing the Lyrica. Objective Last 24 Hour Vital Signs Date Time Temp Pulse Resp B/P (MAP) Pulse Ox O2 Delivery O2 Flow Rate FiO2 11/13/17 08:46 97.7 50 20 157/90 100 Nasal Cannula 11/13/17 05:32 170/90 11/13/17 04:57 97.8 64 19 170/90 96 11/13/17 01:20 177/85 11/13/17 00:09 97.6 60 21 177/85 97 11/12/17 22:27 98.1 11/12/17 20:00 63 11/12/17 20:00 98.1 60 18 159/76 98 Nasal Cannula 11/12/17 17:26 172/86 11/12/17 16:00 60 11/12/17 16:00 96.4 67 18 172/86 99 Nasal Cannula 11/12/17 15:00 143/70 11/12/17 12:06 99.1 59 18 143/70 100 Nasal Cannula 11/12/17 12:00 59 11/12/17 09:23 187/86 Intake and Output 11/12/17 11/13/17 19:00 07:00 Intake Total 760 ml 710 ml Balance 760 ml 710 ml Intake Oral 760 ml 360 ml IV Total 350 ml # Voids 2 2 Height (Feet): 5 Height (Inches): 5.00 Weight (Pounds): 175 Objective GENERAL: Alert, awake, and oriented. LUNGS: Decreased breath sounds bilaterally. HEART: Regular. ABDOMEN: Obese. EXTREMITIES: No cyanosis, no clubbing, and no edema. NEUROLOGIC: No changes. ROYAL BETANCOURT. Nov 13, 2017 08:50
[2017-11-13] MEDS ORDERED: Lyrica 50mg cap ORAL SCH (09:00)
[2017-11-13] MEDS: Lyrica 75mg cap ORAL SCH ×3 (09:12→19:04)
[2017-11-13] MEDS: Heparin 5000 units/ml inj SUBQ SCH ×2 (09:16→20:51)
[2017-11-13 12:13] VITALS: BP 158/75
[2017-11-13 16:32] VITALS: BP 173/90
--- NOTE | 2017-11-13 17:21 | Pulmonology Progress Note ---
Assessment/Plan Problems: (1) Closed head injury (2) Multiple injuries due to trauma (3) Neck pain (4) Diabetes mellitus (5) Failed back surgical syndrome Assessment/Plan neuro note reviewed pain management all reviewed dc planning for am Subjective ROS Limited/Unobtainable: No Constitutional: Reports: no symptoms HEENT: Repors: no symptoms Respiratory: Reports: no symptoms Allergies: Coded Allergies: No Known Allergies (Unverified , 03/23/16) Objective Last 24 Hour Vital Signs Date Time Temp Pulse Resp B/P (MAP) Pulse Ox O2 Delivery O2 Flow Rate FiO2 11/13/17 16:32 97.9 60 20 173/90 100 Nasal Cannula 11/13/17 13:50 97.9 11/13/17 13:50 97.9 11/13/17 12:53 158/75 11/13/17 12:13 97.9 59 20 158/75 100 Nasal Cannula 11/13/17 08:46 97.7 50 20 157/90 100 Nasal Cannula 11/13/17 05:32 170/90 11/13/17 04:57 97.8 64 19 170/90 96 11/13/17 01:20 177/85 11/13/17 00:09 97.6 60 21 177/85 97 11/12/17 22:27 98.1 11/12/17 20:00 63 11/12/17 20:00 98.1 60 18 159/76 98 Nasal Cannula 11/12/17 17:26 172/86 Intake and Output 11/12/17 11/13/17 19:00 07:00 Intake Total 760 ml 710 ml Balance 760 ml 710 ml Intake Oral 760 ml 360 ml IV Total 350 ml # Voids 2 2 General Appearance: WD/WN HEENT: normocephalic, atraumatic Respiratory/Chest: chest wall non-tender, normal breath sounds Breasts: no masses Cardiovascular: normal peripheral pulses Current Medications Medications (Trade) Dose Ordered Sig/Jesse Route PRN Reason Start Time Stop Time Status Last Admin Dose Admin Acetaminophen/ Hydrocodone Bitart ([place] 10/325) 1 ea Q4H PRN ORAL severe pain 11/13/17 01:00 11/19/17 23:59 11/13/17 16:52 Baclofen (Lioresal) 10 mg THREE TIMES A DAY PRN ORAL muscle spasm 11/13/17 09:00 12/12/17 08:59 11/13/17 16:52 Heparin Sodium (Porcine) (Heparin 5000 units/ml) 5,000 units Q12HR SUBQ 11/13/17 09:00 12/12/17 08:59 11/13/17 09:16 Hydralazine HCl (Apresoline) 25 mg Q6HR ORAL 11/13/17 01:00 12/12/17 00:59 11/13/17 12:53 Lidocaine (Lidoderm 5% PATCH) 1 patch DAILY TDERMAL 11/13/17 09:00 12/12/17 08:59 11/13/17 09:14 Pregabalin (Lyrica) 75 mg THREE TIMES A DAY ORAL 11/13/17 09:00 12/13/17 08:59 11/13/17 12:55 Sodium Chloride 1,000 ml @ 100 mls/hr Q10H IV 11/13/17 01:00 12/13/17 00:59 11/13/17 12:53 KEESHA ROLLE Nov 13, 2017 17:21
--- NOTE | 2017-11-13 19:28 | General Progress Note ---
Assessment/Plan Assessment/Plan 1. Anemia secondary to chronic disease. Continue to closely monitor. It is mild at this time. 2. Intractable pain. Currently on [place] tablet. Continue pain management at this time including baclofen, Lyrica, Lidoderm patch. 3. Hypertension. Monitor blood pressure. 3. Trauma, fall. Currently resolved. Continue to monitor. Continue PT/OT. 4. Insulin-dependent diabetes mellitus. Continue insulin sliding scale. 5. DC planning Subjective Constitutional: Denies: no symptoms, chills, diaphoresis, fever, malaise, weakness, other HEENT: Denies: no symptoms, eye pain, blurred vision, tearing, double vision, ear pain, ear discharge, nose pain, nose congestion, throat pain, throat swelling, mouth pain, mouth swelling, other Cardiovascular: Denies: no symptoms, chest pain, edema, irregular heart rate, lightheadedness, palpitations, syncope, other Respiratory: Denies: no symptoms, cough, orthopnea, shortness of breath, SOB with excertion, SOB at rest, sputum, stridor, wheezing, other Gastrointestinal/Abdominal: Denies: no symptoms, abdomen distended, abdominal pain, black stools, tarry stools, blood in stool, constipated, diarrhea, difficulty swallowing, nausea, poor appetite, poor fluid intake, rectal bleeding , vomiting, other Genitourinary: Denies: no symptoms, burning, discharge, frequency, flank pain, hematuria, incontinence, pain, urgency, other Neurologic/Psychiatric: Denies: no symptoms, anxiety, depressed, emotional problems, headache, numbness, paresthesia, pre-existing deficit, seizure, tingling, tremors, weakness, other Endocrine: Denies: no symptoms, excessive sweating, flushing, intolerance to cold, intolerance to heat, increased hunger, increased thirst, increased urine, unexplained weight gain, unexplained weight loss, other Hematologic/Lymphatic: Denies: no symptoms, anemia, easy bleeding, easy bruising, other Allergies: Coded Allergies: No Known Allergies (Unverified , 03/23/16) Subjective has neck pain Objective Last 24 Hour Vital Signs Date Time Temp Pulse Resp B/P (MAP) Pulse Ox O2 Delivery O2 Flow Rate FiO2 11/13/17 19:04 173/90 11/13/17 16:32 97.9 60 20 173/90 100 Nasal Cannula 11/13/17 13:50 97.9 11/13/17 13:50 97.9 11/13/17 12:53 158/75 11/13/17 12:13 97.9 59 20 158/75 100 Nasal Cannula 11/13/17 08:46 97.7 50 20 157/90 100 Nasal Cannula 11/13/17 05:32 170/90 11/13/17 04:57 97.8 64 19 170/90 96 11/13/17 01:20 177/85 11/13/17 00:09 97.6 60 21 177/85 97 11/12/17 22:27 98.1 11/12/17 20:00 63 11/12/17 20:00 98.1 60 18 159/76 98 Nasal Cannula Intake and Output 11/12/17 11/13/17 19:00 07:00 Intake Total 760 ml 710 ml Balance 760 ml 710 ml Intake Oral 760 ml 360 ml IV Total 350 ml # Voids 2 2 Height (Feet): 5 Height (Inches): 5.00 Weight (Pounds): 175 General Appearance: no apparent distress EENT: PERRL/EOMI Neck: tenderness Cardiovascular: normal rate Respiratory/Chest: lungs clear Abdomen: soft Extremities: non-tender Edema: trace edema Ruddy Cornejo Nov 13, 2017 19:28
[2017-11-13 20:41] VITALS: BP 176/90
[2017-11-14 00:30] VITALS: BP 131/91
[2017-11-14] MEDS: HydrALAZINE 25mg tab ORAL SCH ×4 (01:39→18:06)
[2017-11-14] MEDS: HYDROcodone/Acetamin 10/325 tab ORAL PRN ×2 (02:59→16:37)
[2017-11-14 04:00] VITALS: BP 159/93
[2017-11-14 08:00] VITALS: BP 135/90
[2017-11-14] MEDS: Lyrica 75mg cap ORAL SCH ×3 (08:23→18:06)
[2017-11-14] MEDS: Heparin 5000 units/ml inj SUBQ SCH (08:26)
--- NOTE | 2017-11-14 08:43 | General Progress Note ---
Assessment/Plan Assessment/Plan (1) FBSS (2) Lumbar and Cervical DDD (3) Lumbar and Cervical spondylosis (4) Lumbar and Cervical radiculopathy (5) Cervical sprain Pt to be continued on [place], Lyrica and Baclofen. RX for [place] 10/325mg PO 1 tab Q4-6h PRN 15 tabs in anticipation for discharge. D/w Dr. Duncan and he concurred. Subjective Date patient seen: Nov 14, 2017 Time patient seen: 07:15 - am Allergies: Coded Allergies: No Known Allergies (Unverified , 03/23/16) Subjective REVIEW OF SYSTEMS: Denies rash, fever, chills, sweating, dizziness, drowsiness, or change in her weight. No shortness of breath, chest pain, palpitations, or cough. No nausea, vomiting, diarrhea, or blood in the stool or urine. No bowel or bladder incontinence. No dysuria. She is complaining of neck pain and low back pain. SUBJECTIVE: Pt is in bed and reports that her pain has no changes and it has been tolerated on the norco with the morphine pump. She is looking forward to being discharged home later today as per the supervisor cell maintenance. Objective Last 24 Hour Vital Signs Date Time Temp Pulse Resp B/P (MAP) Pulse Ox O2 Delivery O2 Flow Rate FiO2 11/14/17 08:00 98.2 65 18 135/90 99 11/14/17 05:35 159/93 11/14/17 04:00 98.1 57 19 159/93 100 11/14/17 01:39 131/91 11/14/17 00:30 98.2 60 17 131/91 99 11/13/17 20:41 98.2 63 19 176/90 99 11/13/17 19:04 173/90 11/13/17 16:32 97.9 60 20 173/90 100 Nasal Cannula 11/13/17 13:50 97.9 11/13/17 13:50 97.9 11/13/17 12:53 158/75 11/13/17 12:13 97.9 59 20 158/75 100 Nasal Cannula 11/13/17 08:46 97.7 50 20 157/90 100 Nasal Cannula Intake and Output 11/13/17 11/14/17 19:00 07:00 Intake Total 840 ml 300 ml Output Total 600 ml 320 ml Balance 240 ml -20 ml Intake Oral 840 ml 300 ml Output Urine Total 600 ml 320 ml # Voids 2 2 Height (Feet): 5 Height (Inches): 5.00 Weight (Pounds): 175 Objective GENERAL: Alert, awake, and oriented. LUNGS: Decreased breath sounds bilaterally. HEART: Regular. ABDOMEN: Obese. EXTREMITIES: No cyanosis, no clubbing, and no edema. NEUROLOGIC: No changes. ROYAL BETANCOURT Nov 14, 2017 08:43
[2017-11-14 12:00] VITALS: BP 159/70
[2017-11-14 16:00] VITALS: BP 182/83
[2017-11-14 18:06] VITALS: BP 182/83
--- NOTE | 2017-11-14 18:45 | General Progress Note ---
Assessment/Plan Assessment/Plan 1. Anemia secondary to chronic disease. Continue to closely monitor. --> If worsens, consider to send workup It is mild at this time. 2. Intractable pain. Currently on [place] tablet. Continue pain management at this time including baclofen, Lyrica, Lidoderm patch. --> appreciate pain management recs, pain rx written 3. Hypertension. Monitor blood pressure. 3. Trauma, fall. Currently resolved. Continue to monitor. Continue PT/OT. 4. Insulin-dependent diabetes mellitus. Continue insulin sliding scale. 5. DC planning Subjective Constitutional: Denies: no symptoms, chills, diaphoresis, fever, malaise, weakness, other HEENT: Denies: no symptoms, eye pain, blurred vision, tearing, double vision, ear pain, ear discharge, nose pain, nose congestion, throat pain, throat swelling, mouth pain, mouth swelling, other Cardiovascular: Denies: no symptoms, chest pain, edema, irregular heart rate, lightheadedness, palpitations, syncope, other Gastrointestinal/Abdominal: Denies: no symptoms, abdomen distended, abdominal pain, black stools, tarry stools, blood in stool, constipated, diarrhea, difficulty swallowing, nausea, poor appetite, poor fluid intake, rectal bleeding , vomiting, other Genitourinary: Denies: no symptoms, burning, discharge, frequency, flank pain, hematuria, incontinence, pain, urgency, other Neurologic/Psychiatric: Denies: no symptoms, anxiety, depressed, emotional problems, headache, numbness, paresthesia, pre-existing deficit, seizure, tingling, tremors, weakness, other Endocrine: Denies: no symptoms, excessive sweating, flushing, intolerance to cold, intolerance to heat, increased hunger, increased thirst, increased urine, unexplained weight gain, unexplained weight loss, other Hematologic/Lymphatic: Denies: no symptoms, anemia, easy bleeding, easy bruising, other Allergies: Coded Allergies: No Known Allergies (Unverified , 03/23/16) Subjective has neck pain, no events have been noted, no f/c Objective Last 24 Hour Vital Signs Date Time Temp Pulse Resp B/P (MAP) Pulse Ox O2 Delivery O2 Flow Rate FiO2 11/14/17 18:06 182/83 11/14/17 17:30 97.5 11/14/17 16:00 97.9 64 17 182/83 97 11/14/17 14:00 97.5 11/14/17 13:07 159/70 11/14/17 12:00 97.5 62 20 159/70 98 11/14/17 08:00 98.2 65 18 135/90 99 11/14/17 05:35 159/93 11/14/17 04:00 98.1 57 19 159/93 100 11/14/17 01:39 131/91 11/14/17 00:30 98.2 60 17 131/91 99 11/13/17 20:41 98.2 63 19 176/90 99 11/13/17 19:04 173/90 Intake and Output 11/13/17 11/14/17 19:00 07:00 Intake Total 840 ml 300 ml Output Total 600 ml 320 ml Balance 240 ml -20 ml Intake Oral 840 ml 300 ml Output Urine Total 600 ml 320 ml # Voids 2 2 Height (Feet): 5 Height (Inches): 5.00 Weight (Pounds): 175 General Appearance: WD/WN EENT: normal ENT inspection Neck: supple Cardiovascular: regular rhythm Respiratory/Chest: lungs clear Abdomen: soft Extremities: non-tender Edema: 1+ Leg (L), 1+ Leg (R) Edema: mild edema Neurologic: alert Skin: warm/dry Ruddy Cornejo Nov 14, 2017 18:45
--- NOTE | 2017-11-14 18:54 | Pulmonology Progress Note ---
Assessment/Plan Problems: (1) Closed head injury (2) Multiple injuries due to trauma (3) Neck pain (4) Diabetes mellitus (5) Failed back surgical syndrome Assessment/Plan neuro note reviewed pain management all reviewed dc planning for today Subjective ROS Limited/Unobtainable: No Constitutional: Reports: no symptoms HEENT: Repors: no symptoms Respiratory: Reports: no symptoms Allergies: Coded Allergies: No Known Allergies (Unverified , 03/23/16) Objective Last 24 Hour Vital Signs Date Time Temp Pulse Resp B/P (MAP) Pulse Ox O2 Delivery O2 Flow Rate FiO2 11/14/17 18:06 182/83 11/14/17 17:30 97.5 11/14/17 16:00 97.9 64 17 182/83 97 11/14/17 14:00 97.5 11/14/17 13:07 159/70 11/14/17 12:00 97.5 62 20 159/70 98 11/14/17 08:00 98.2 65 18 135/90 99 11/14/17 05:35 159/93 11/14/17 04:00 98.1 57 19 159/93 100 11/14/17 01:39 131/91 11/14/17 00:30 98.2 60 17 131/91 99 11/13/17 20:41 98.2 63 19 176/90 99 11/13/17 19:04 173/90 Intake and Output 11/13/17 11/14/17 19:00 07:00 Intake Total 840 ml 300 ml Output Total 600 ml 320 ml Balance 240 ml -20 ml Intake Oral 840 ml 300 ml Output Urine Total 600 ml 320 ml # Voids 2 2 General Appearance: WD/WN HEENT: normocephalic Respiratory/Chest: chest wall non-tender Breasts: no masses Cardiovascular: normal peripheral pulses Abdomen: normal bowel sounds Extremities: no cyanosis Skin: no ulcers Neurologic/Psychiatric: chainman II-XII grossly normal Current Medications Medications (Trade) Dose Ordered Sig/Jesse Route PRN Reason Start Time Stop Time Status Last Admin Dose Admin Acetaminophen/ Hydrocodone Bitart ([place] 10/325) 1 ea Q4H PRN ORAL severe pain 11/13/17 01:00 11/19/17 23:59 11/14/17 16:37 Baclofen (Lioresal) 10 mg THREE TIMES A DAY PRN ORAL muscle spasm 1/3/18 09:00 12/12/17 08:59 11/14/17 13:06 Heparin Sodium (Porcine) (Heparin 5000 units/ml) 5,000 units Q12HR SUBQ 11/13/17 09:00 12/12/17 08:59 11/14/17 08:26 Hydralazine HCl (Apresoline) 25 mg Q6HR ORAL 11/13/17 01:00 12/12/17 00:59 11/14/17 18:06 Lidocaine (Lidoderm 5% PATCH) 1 patch DAILY TDERMAL 11/13/17 09:00 12/12/17 08:59 11/14/17 08:24 Pregabalin (Lyrica) 75 mg THREE TIMES A DAY ORAL 11/13/17 09:00 12/13/17 08:59 11/14/17 18:06 Sodium Chloride 1,000 ml @ 100 mls/hr Q10H IV 11/13/17 01:00 12/13/17 00:59 11/14/17 17:46 KEESHA ROLLE Nov 14, 2017 18:54
--- NOTE | 2017-11-15 15:29 | Discharge Summary ---
Discharge Summary Hospital Course Date of Admission Nov 11, 2017 at 10:39 Date of Discharge Nov 14, 2017 at 19:14 Admitting Diagnosis CLOSED HEAD TRAUMA,PAIN HPI Shayy Razo is a 56 year old female who was admitted on Nov 11, 2017 at 10: 39 for Closed Head Trauma, Pain Hospital Course [id number] Discharge Discharge Disposition Patient was discharged to Home (01) Discharge Diagnoses: Keesha Caruso NP Nov 15, 2017 15:29
--- NOTE | 2017-11-15 19:15 | General Progress Note ---
Subjective Date patient seen: Nov 13, 2017 Neurologic/Psychiatric: Reports: anxiety, depressed, emotional problems Allergies: Coded Allergies: No Known Allergies (Unverified , 03/23/16) Objective Intake and Output 11/14/17 11/15/17 19:00 07:00 Intake Total 750 ml Balance 750 ml Intake Oral 750 ml # Voids 3 Height (Feet): 5 Height (Inches): 5.00 Weight (Pounds): 175 Neurologic: alert, oriented x 3, responsive Sina Nieves M.D. Nov 15, 2017 19:15
--- NOTE | 2017-11-15 19:15 | Consultation ---
History of Present Illness General Date patient seen: Nov 12, 2017 Chief Complaint: Multiple Trauma/Fall Present Illness HPI 56-year-old female with acute onset of neck pain and weakness. According to the patient, she was trying to use a walker, she somehow slipped, fell, hitting her back and neck against the ground without loss of consciousness. the pt also has sxs that are consistent with depression, low energy and anhedonia. the pt is reluctant to take medications Allergies: Coded Allergies: No Known Allergies (Unverified , 03/23/16) Medication History Scheduled Amlodipine/Valsartan ([place] 10-320 Mg Tablet), 1 TAB ORAL DAILY, (Reported) Aspirin (Aspirin EC), 81 MG ORAL DAILY, (Reported) Atenolol* (Tenormin*), 50 MG ORAL BID, (Reported) Atorvastatin Calcium* (Atorvastatin Calcium*), 20 MG ORAL BEDTIME, (Reported) Clonidine HCl (Clonidine HCl), 0.2 MG PO DAILY, (Reported) Docusate Sodium* (Colace*), 100 MG ORAL TWICE A DAY, (Reported) Fish Oil (Fish Oil 1,000 mg Capsule), 1,000 MG ORAL DAILY Fluoxetine Hcl* (Prozac*), 10 MG ORAL DAILY, (Reported) Furosemide* (Lasix*), 40 MG ORAL DAILY, (Reported) Gemfibrozil (Gemfibrozil*), 600 MG ORAL TWICE A DAY Hydroxyzine HCl (Hydroxyzine Pamoate), 100 MG ORAL BEDTIME, (Reported) Insulin Aspart* (Novolog*), 15 SUBQ TID, (Reported) Insulin Glargine (Lantus), 40 SUBQ BEDTIME, (Reported) Liraglutide (Victoza 2-Jef), 1.8 UNITS SUBQ DAILY, (Reported) Lorazepam* (Ativan*), 1 MG ORAL BID, (Reported) Metformin Hcl* (Metformin Hcl*), 1,000 MG ORAL BID, (Reported) Pregabalin (Lyrica), 25 MG ORAL BID, (Reported) Sitagliptin* (Januvia*), 25 MG ORAL DAILY, (Reported) Trimethoprim/Sulfamethoxazole 160/800* (Bactrim Ds Tablet*), 1 TAB ORAL TWICE A DAY Scheduled PRN Cyclobenzaprine Hcl* (Flexeril*), 10 MG ORAL TID PRN for Muscle Spasm Ibuprofen* (Motrin*), 600 MG ORAL Q8H PRN for For Pain Patient History History Provided By: Patient, Medical Record, PMD Healthcare decision maker Resuscitation status Advanced Directive on File Past Medical/Surgical History Past Medical/Surgical History: (1) Pain of right lower extremity (2) Cellulitis (3) Hypercholesterolemia (4) Rib contusion (5) Neck pain (6) Fall (7) Diabetes mellitus (8) HTN (hypertension) (9) Closed head injury (10) Failed back surgical syndrome (11) Lumbar degenerative disc disease (12) Multiple injuries due to trauma (13) Lumbar radiculopathy (14) Cervical radiculopathy (15) Blunt head trauma (16) Degenerative disc disease, cervical (17) acute right cervical m/l sprain (18) morphine pump Review of Systems Psychiatric: Reports: prior hx, anxiety, depressed feelings, emotional problems Physical Exam General Appearance: no apparent distress, alert Neurologic: alert, oriented x 3, responsive, depressed affect Intake and Output 11/14/17 11/15/17 19:00 07:00 Intake Total 750 ml Balance 750 ml Intake Oral 750 ml # Voids 3 Height (Feet): 5 Height (Inches): 5.00 Weight (Pounds): 175 Assessment/Plan Status: stable Assessment/Plan depressive d/o may benefit from antidepressants Sina Nieves M.D. Nov 15, 2017 19:15
--- NOTE | 2017-11-15 19:16 | General Progress Note ---
Subjective Date patient seen: Nov 14, 2017 Neurologic/Psychiatric: Reports: anxiety, depressed, emotional problems Allergies: Coded Allergies: No Known Allergies (Unverified , 03/23/16) Objective Intake and Output 11/14/17 11/15/17 19:00 07:00 Intake Total 750 ml Balance 750 ml Intake Oral 750 ml # Voids 3 Height (Feet): 5 Height (Inches): 5.00 Weight (Pounds): 175 General Appearance: no apparent distress, alert Neurologic: alert, oriented x 3, responsive, depressed affect Sina Nieves M.D. Nov 15, 2017 19:16
--- NOTE | 2017-11-15 20:15 | Discharge Summary 2 SIG ---
DATE OF ADMISSION: 11/11/2017 DATE OF DISCHARGE: 11/14/2017 CONSULTANTS: 1. Ruddy Cornejo M.D. 2. Jody Duncan M.D. 3. Placido Kwok M.D. BRIEF HOSPITAL COURSE: The patient is a 56-year-old female with history of chronic back pain, has a morphine pump, presented to ED complaining of neck pain after she slipped and fell, hitting her head. She denied loss of consciousness and was complaining of pain on the neck and head. On evaluation at ED, head CT showed no evidence of acute intracranial bleed or mass effect. There was a tiny focus of high attenuation in the anterior medial right frontal lobe. Hemorrhage not completely excluded. Cervical spine CT showed no acute bony trauma. She was then admitted for intractable pain and was referred to pain management. She was given [place], Lyrica and baclofen. She underwent neurological evaluation. The patient unable to have MRI due to a morphine pump. Pain was mainly related to blunt head trauma and cervical musculoligamentous sprain. She had anemia secondary to chronic disease and was given PT and OT. She was eventually discharged home. FINAL DIAGNOSES: 1. Closed head injury. 2. Neck pain from cervical musculoligamentous sprain. 3. Chronic pain syndrome, opiate-dependent with a morphine pump implant. 4. Hypertension. 5. Insulin-dependent diabetes type 2. 6. Hypertension. DISPOSITION: The patient was discharged home. DISCHARGE MEDICATIONS: Refer to medication list. DISCHARGE INSTRUCTIONS: Follow up with PMD in a week. Manjeet Delgadillo M.D. I have been assigned to dictate discharge summary on this account and I was not involved in the patient's management. Keesha Caruso N.P. DR: CORDELL JOB#: [id number] CC:
--- NOTE | 2017-11-15 20:21 | General Progress Note ---
Assessment/Plan Assessment/Plan 1. Anemia secondary to chronic disease. Continue to closely monitor. --> If worsens, consider to send workup It is mild at this time. 2. Intractable pain. Currently on [place] tablet. Continue pain management at this time including baclofen, Lyrica, Lidoderm patch. --> appreciate pain management recs, pain rx written 3. Hypertension. Monitor blood pressure. 3. Trauma, fall. Currently resolved. Continue to monitor. Continue PT/OT. 4. Insulin-dependent diabetes mellitus. Continue insulin sliding scale. 5. DC planning Subjective Constitutional: Reports: no symptoms HEENT: Reports: no symptoms Cardiovascular: Reports: no symptoms Respiratory: Reports: no symptoms Gastrointestinal/Abdominal: Reports: no symptoms Genitourinary: Reports: no symptoms Neurologic/Psychiatric: Reports: no symptoms Endocrine: Reports: no symptoms Hematologic/Lymphatic: Reports: anemia Allergies: Coded Allergies: No Known Allergies (Unverified , 03/23/16) Subjective has neck pain, no events have been reported Objective Intake and Output 11/14/17 11/15/17 19:00 07:00 Intake Total 750 ml Balance 750 ml Intake Oral 750 ml # Voids 3 Height (Feet): 5 Height (Inches): 5.00 Weight (Pounds): 175 General Appearance: no apparent distress EENT: TMs normal Neck: supple Cardiovascular: normal peripheral pulses Respiratory/Chest: lungs clear Abdomen: normal bowel sounds Extremities: non-tender Edema: 1+ Leg (L), 1+ Leg (R) Edema: trace edema Neurologic: oriented x 3 Skin: warm/dry Ruddy Cornejo Nov 15, 2017 20:20
== END 2017-11-14 19:14 | disposition home health service (06) | DRG 914 ==
LOC: EDBD 08:56 → EMR 09:20 → 2E 10:39 → EDBEDREQ 20:42 → 3E 11-12 23:05
DX: S09.90XA Unspecified injury of head, initial encounter (principal); F11.20 Opioid dependence, uncomplicated; I10 Essential (primary) hypertension; E11.9 Type 2 diabetes mellitus without complications; D63.8 Anemia in other chronic diseases classified elsewhere; F41.9 Anxiety disorder, unspecified; S00.93XA Contusion of unspecified part of head, initial encounter; S13.9XXA Sprain of joints and ligaments of unspecified parts of neck, initial encounter; W06.XXXA Fall from bed, initial encounter; Y92.032 Bedroom in apartment as the place of occurrence of the external cause; F12.10 Cannabis abuse, uncomplicated; M50.10 Cervical disc disorder with radiculopathy, unspecified cervical region; M51.16 Intervertebral disc disorders with radiculopathy, lumbar region; M96.1 Postlaminectomy syndrome, not elsewhere classified; G89.4 Chronic pain syndrome; Z79.4 Long term (current) use of insulin; M47.26 Other spondylosis with radiculopathy, lumbar region; M47.22 Other spondylosis with radiculopathy, cervical region; M50.123 Cervical disc disorder at C6-C7 level with radiculopathy; Z98.1 Arthrodesis status; F32.89 Other specified depressive episodes
CPT/HCPCS: 36415; 70450; 71045; 72125; 80053; 80307; 80329; 81003; 82962; 84484; 85025; 93005; 99285